=== PATIENT | male | born 1975 | race Caucasian/White ===

== ENCOUNTER 2020-04-06 13:51 | Outpatient (CLI) | payer SELFPAY | END 2020-04-06 13:52 | disposition critical access hospital (66) | LOC: EMS 13:51 | PROVIDERS: ATTEND Surgery | DX: R40.20 Unspecified coma (principal) | CPT/HCPCS: A0425; A0427 ==

== ENCOUNTER 2020-04-06 14:11 | Emergency (ER) | payer SELFPAY ==
[2020-04-06] MEDS ORDERED: ONDANSETRON 4 MG/2 ML VIAL IVP STA (14:17)
[2020-04-06] MEDS ORDERED: SODIUM CHLORIDE 0.9% 1,000 ML IV STA ×2 (14:17→15:17)
--- NOTE | 2020-04-06 14:20 | ED Physician Documentation ---
History of Present Illness - Stated complaint Stated Complaint: ALOC - Chief complaint Chief Complaint: General - History obtained from History obtained from: EMS - Additonal information Additional information: 44-year-old gentleman brought in by ambulance for altered mental status and vomiting. Reportedly potentially lives out of the area. He we are able to ascertain that he has type 1 diabetes with an insulin pump with its not working, and history of renal transplant. 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 On route his blood sugar was noted to be in the 500s and he is actively vomiting but unable to speak because of altered mental status. Review of Systems Unable to obtain: Confused PD PAST MEDICAL HISTORY - Allergies Allergies/Adverse Reactions: Allergies Allergy/AdvReac Type Severity Reaction Status Date / Time SPIKE Inhibitors Allergy Unknown Verified 04/06/20 15:05 PD ED PE NORMAL - Vitals Vital signs reviewed: Yes - General General: Other (He is alert and will make eye contact and follow simple commands but unable to talk at all. He is actively vomiting.) - HEENT HEENT: PERRL - Neck Neck: Supple, no meningeal sign, No bony TTP - Cardiac Cardiac: RRR, Other (3 out of 6 systolic murmur heard best at the left upper sternal border of unclear acuity) - Respiratory Respiratory: No respiratory distress, Clear bilaterally - Abdomen Abdomen: Non tender - Back Back: No CVA TTP, No spinal TTP - Derm Derm: Normal color - Extremities Extremities: No edema, No calf tenderness / cord, Other (Orthotic on the left leg) - Neuro Eye Opening: Spontaneous Motor: Obeys Commands Verbal: None GCS Score: 11 Results - Vitals Vitals: Vital Signs - 24 hr 04/06/20 04/06/20 04/06/20 14:10 14:18 14:48 Temperature 36.5 C Heart Rate 85 86 83 Respiratory 28 H 17 23 Rate Blood Pressure 99/73 130/97 H 90/42 L O2 Saturation 100 93 98 04/06/20 04/06/20 04/06/20 15:06 15:30 15:45 Temperature Heart Rate 93 99 101 H Respiratory 22 16 22 Rate Blood Pressure 96/57 L 104/55 L O2 Saturation 95 95 04/06/20 04/06/20 16:00 16:08 Temperature Heart Rate 100 99 Respiratory 16 18 Rate Blood Pressure 114/65 114/65 O2 Saturation 98 99 Oxygen O2 Source Room air - EKG (time done) 1423 Rate: Rate (enter#) (92) Rhythm: NSR Rembrandt: Normal Intervals: Other (IVCD) Ischemia: Other (Peaked T waves) Compare to prior EKG: Old EKG unavailable Computer interpretation: Agree with computer - Labs Labs: Laboratory Tests 04/06/20 04/06/20 04/06/20 14:35 14:35 14:35 WBC 12.8 H RBC 5.19 Hgb 16.2 Hct 48.9 MCV 94.2 H MCH 31.2 H MCHC 33.1 RDW 13.4 Plt Count 205 MPV 9.3 Neut # (Auto) 11.8 H Lymph # (Auto) 0.6 L [place] # (Auto) 0.3 Eos # (Auto) 0.0 Baso # (Auto) 0.1 Absolute Nucleated RBC 0.00 Nucleated RBC % 0.0 VBG pH VBG pCO2 VBG pO2 VBG HCO3 VBG Total CO2 VBG O2 Saturation VBG Base Excess Sodium 126 L Potassium 7.3 H* Chloride 93 L Carbon Dioxide 16 L Anion Gap 17.0 H BUN 33 H Creatinine 2.4 H Estimated GFR (MDRD) 30 L Glucose 585 H* POC Whole Bld Glucose Lactic Acid 3.0 H* Calcium 9.1 Phosphorus 2.6 Magnesium 1.9 Total Bilirubin 2.0 H AST 30 ALT 24 Alkaline Phosphatase 78 Troponin I High Sens Total Protein 7.6 Albumin 4.0 Globulin 3.6 Albumin/Globulin Ratio 1.1 Ethyl Alcohol 7.1 Serum Ketones SMALL H 04/06/20 04/06/20 04/06/20 14:35 14:35 16:06 WBC RBC Hgb Hct MCV MCH MCHC RDW Plt Count MPV Neut # (Auto) Lymph # (Auto) [place] # (Auto) Eos # (Auto) Baso # (Auto) Absolute Nucleated RBC Nucleated RBC % VBG pH 7.321 VBG pCO2 31.8 L VBG pO2 61.6 H VBG HCO3 16.1 L VBG Total CO2 17.0 L VBG O2 Saturation 91.6 H VBG Base Excess -8.6 L Sodium Potassium Chloride Carbon Dioxide Anion Gap BUN Creatinine Estimated GFR (MDRD) Glucose POC Whole Bld Glucose 384 H Lactic Acid Calcium Phosphorus Magnesium Total Bilirubin AST ALT Alkaline Phosphatase Troponin I High Sens 8.2 Total Protein Albumin Globulin Albumin/Globulin Ratio Ethyl Alcohol Serum Ketones 04/06/20 04/06/20 16:16 16:53 WBC RBC Hgb Hct MCV MCH MCHC RDW Plt Count MPV Neut # (Auto) Lymph # (Auto) [place] # (Auto) Eos # (Auto) Baso # (Auto) Absolute Nucleated RBC Nucleated RBC % VBG pH VBG pCO2 VBG pO2 VBG HCO3 VBG Total CO2 VBG O2 Saturation VBG Base Excess Sodium 132 L Potassium 4.6 Chloride 100 L Carbon Dioxide 17 L Anion Gap 15.0 H BUN 33 H Creatinine 2.4 H Estimated GFR (MDRD) 30 L Glucose 419 H POC Whole Bld Glucose 382 H Lactic Acid Calcium 8.7 Phosphorus Magnesium Total Bilirubin AST ALT Alkaline Phosphatase Troponin I High Sens Total Protein Albumin Globulin Albumin/Globulin Ratio Ethyl Alcohol Serum Ketones Procedures - General procedure General procedure: Physician placed IV: I personally placed a 20-gauge IV in the right external jugular vein after ChloraPrep which flushed and analy well. PD MEDICAL DECISION MAKING - ED course ED course: 44-year-old gentleman with history of type 1 diabetes with an insulin pump that is not working and history of renal transplant He is not talking much at all. presents with altered mental status and vomiting. Initially we had to register has him as a "[place]." EKG and telemetry monitoring was concerning for hyperkalemia. I recommended to him a central line which he refused, but was unable to say why he was refusing it other than to say the last time he had a central line it did not go well. He could not elaborate on what went wrong. We did get an IV in the forearm and then I placed an external jugular peripheral IV. Ordered IV calcium gluconate and insulin pending labs given concern for hyperkalemia on EKG. After the above interventions he actually got much better, his mental status returned to normal. We repeated the potassium it was down significantly. We were making arrangements to send him to [facility] but he repeatedly said he wanted to go home. His mental status was such that he did understand the risk of both the hyperkalemia including sudden or disability due to heart rhythm problems etc. and of the profound nature of his hyperglycemia. He understands and verbalizes this back but still says he wants to go home and plans to eat less junk food. - Critical Care Time(min): 45 Time Includes: Direct patient care, Review records, Reassess patient, Document care, Coordinate care, Medical consult Data interpretation: Labs, Pulse ox Procedures included in critical care time: Peripheral IV Procedures excluded from critical care time: EKG Departure - Departure Disposition: 07 Against Medical Advice Clinical Impression: Hyperkalemia, Hyperglycemia, Renal transplant disorder Renal failure Qualifiers: Renal failure chronicity: unspecified chronicity Qualified Code(s): N19 - Unspecified kidney failure Condition: Critical Discharge Date/Time: 04/06/20 17:15
[2020-04-06] MEDS ORDERED: CALCIUM GLUCONATE 1000 MG/10 ML VIAL IVP STA (14:38)
[2020-04-06] MEDS ORDERED: INSULIN REGULAR HUMAN 100 UNIT/1 ML 10 ML MDV IVP STA (14:38)
[2020-04-06 14:51] LABS: BASOPHILS # (AUTO) 0.1 10^3/uL (0.0-0.1); BASOPHILS % (AUTO) 0.4 %; HGB - HEMOGLOBIN 16.2 g/dL (14.0-18.0); LYMPHOCYTES # (AUTO) 0.6 10^3/uL (1.5-3.5); LYMPHOCYTES % (AUTO) 4.8 %; MEAN CORPUSCULAR HEMOGLOBIN 31.2 pg (27.0-31.0); MEAN CORPUSCULAR HGB CONC 33.1 g/dL (32.0-36.0); MEAN CORPUSCULAR VOLUME 94.2 fL (80.0-94.0); MEAN PLATELET VOLUME 9.3 fL (7.4-11.4); MONOCYTES # (AUTO) 0.3 10^3/uL (0.0-1.0); MONOCYTES % (AUTO) 2.4 %; NEUTROPHILS # (AUTO) 11.8 10^3/uL (1.5-6.6); NEUTROPHILS % (AUTO) 91.9 %; PLT - PLATELET COUNT 205 10^3/uL (130-450); RED BLOOD COUNT 5.19 10^6/uL (4.70-6.10); RED CELL DISTRIBUTION WIDTH 13.4 % (12.0-15.0); VBG BASE EXCESS -8.6 mmol/L (-2 - +2); VBG PCO2 31.8 mmHg (41-51); VBG PH 7.321 (7.31-7.41); VBG PO2 61.6 mmHg (25-47); WHITE BLOOD COUNT 12.8 x10^3/uL (4.8-10.8)
[2020-04-06 15:06] LABS: ALBUMIN/GLOBULIN RATIO 1.1 (1.0-2.2); ALKALINE PHOSPHATASE 78 IU/L (42-121); ALT ALANINE AMINOTRANSFERASE 24 IU/L (10-60); AST ASPARTATE AMINOTRANSFERASE 30 IU/L (10-42); BUN - BLOOD UREA NITROGEN 33 mg/dL (6-20); CALCIUM 9.1 mg/dL (8.5-10.3); CARBON DIOXIDE - CO2 16 mmol/L (21-32); CHLORIDE 93 mmol/L (101-111); CREATININE 2.4 mg/dL (0.6-1.2); MAGNESIUM 1.9 mg/dL (1.7-2.8); PHOSPHORUS 2.6 mg/dL (2.5-4.6); SODIUM 126 mmol/L (135-145); TOTAL PROTEIN 7.6 g/dL (6.7-8.2)
[2020-04-06 15:08] LABS: GLUCOSE 585 mg/dL (70-100)
[2020-04-06 15:13] LABS: KETONES, SERUM (ACETEST) SMALL (NEGATIVE)
--- NOTE | 2020-04-06 15:14 | CT Report ---
PROCEDURE: HEAD WO INDICATIONS: Acute altered mental status. Decreased level of consciousness. TECHNIQUE: Noncontrast 4.5 mm thick angled axial sections acquired from the foramen magnum to the vertex. For r adiation dose reduction, the following was used: automated exposure control, adjustment of mA and/or kV according to patient size. COMPARISON: None. FINDINGS: Image quality: Excellent. CSF spaces: Basal cisterns are patent. No extra-axial fluid collections. Ventricles are normal in size and shape. Brain: No midline shift. No intracranial masses or hemorrhage. [place]-white matter interface is norm al. Skull and face: Calvarium and visualized facial bones are intact, without suspicious lesions. Sinuses: Visualized sinuses and mastoids are clear. IMPRESSION: No acute intracranial disease process. Reviewed by: Angeline Coker MD, PhD on 04/06/2020 3:13 PM PST Approved by: Angeline Coker MD, PhD on 04/06/2020 3:13 PM PST Station ID: [id number]
[2020-04-06] MEDS ORDERED: ALBUTEROL NEB 2.5 MG/3 ML INH STA (15:18)
[2020-04-06] MEDS ORDERED: INSULIN REGULAR HUMAN 100 UNIT in SODIUM CHLORIDE 0.9% 100ML 99 ML IV STA (15:18)
[2020-04-06] MEDS ORDERED: MAG HYDROX/AL HYDROX/SIMETH 30 ML UDC PO STA (16:16)
[2020-04-06 16:20] VITALS: BP 114/65
[2020-04-06 16:33] LABS: CALCIUM 8.7 mg/dL (8.5-10.3); CREATININE 2.4 mg/dL (0.6-1.2)
== END 2020-04-06 17:15 | disposition left against medical advice (07) ==
LOC: ED 14:11
DX: E10.65 Type 1 diabetes mellitus with hyperglycemia (principal); E10.22 Type 1 diabetes mellitus with diabetic chronic kidney disease; N18.9 Chronic kidney disease, unspecified; E87.5 Hyperkalemia; T85.614A Breakdown (mechanical) of insulin pump, initial encounter; Z94.0 Kidney transplant status; Z96.41 Presence of insulin pump (external) (internal); Z53.20 Procedure and treatment not carried out because of patient's decision for unspecified reasons
CPT/HCPCS: 36415; 36556; 70450; 80048; 80053; 80320; 82009; 82803; 83605; 83735; 84100; 84484; 85025; 93005; 94640; 96374; 96375; 99285; 99291; A9270; J1815